=== PATIENT | male | born 1950 | race Caucasian/White ===

== ENCOUNTER 2020-12-27 10:19 | Emergency (ER) | payer MEDICARE ==
[~2020-12-27] VITALS: Ht 180.3 cm; Wt 180.0 kg
--- NOTE | 2020-12-27 10:56 | PHYS DOC ---
General Adult EDM: Chief Complaint: MECHANICAL FALL HPI: HPI: 70-year-old male past medical history of hypertension, hyperlipidemia, iron deficiency anemia, GERD, COPD and chronic pain (lumbar back pain, sciatica, right shoulder supraspinatus tear), presents the ED with c/o "what is this?" and points to left upper abdomen stating, "is this a mass?" Patient reports he fell forward days ago but does not recall any specific blunt abdominal injury. Patient not any anticoagulants. Reports did not hit his head or lose consciousness. Denies any associated weight loss, night sweats or fever. Review of Systems: Review of Systems: Constitutional: Denies fever or chills Eyes: Denies change in visual acuity HENT: Denies nasal congestion or sore throat Respiratory: Denies cough or shortness of breath Cardiovascular: Denies chest pain or edema GI: Denies nausea, vomiting, bloody stools or diarrhea : Denies incontinence or saddle anesthesia Musculoskeletal: Denies back pain or joint pain Integument: Denies rash or diaphoresis Neurologic: Denies headache, focal weakness or sensory changes Endocrine: Denies polyuria or polydipsia Lymphatic: Denies swollen glands Psychiatric: Denies depression or anxiety Physical Exam: PE: Constitutional: Well developed, well nourished, no acute distress, non-toxic appearance. HENT: Normocephalic, atraumatic, Eyes: EOMI, conjunctiva normal, no discharge. Neck: Normal range of motion, supple, Cardiovascular: S1/2 present, regular rhythm Lungs & Thorax: Speaking in full sentences, bilateral equal chest rise, no tachypnea or increased work of breathing Abdomen: soft, no tenderness, left upper quadrant fullness Skin: Warm, dry, no erythema, no rash. [] Back: No midline spinal step offs or tenderness, no CVA tenderness. [] Extremities: No tenderness, no cyanosis, Neurologic: Alert and oriented X 3, normal motor function, normal sensory function, no focal deficits noted, ambulates cautiously with cane Psychologic: Affect normal, judgement normal, mood normal. [] EKG: EKG: [] Radiology/Procedures: Radiology/Procedures: IMAGING REPORT Signed PATIENT: ANNIKA DAVISON ACCOUNT: [id number] : 1950 LOCATION: ER AGE: 70 SEX: M EXAM STATUS: REG ER ORD. PHYSICIAN: ASHISH OCASIO DO REASON: fall PROCEDURE: CT HEAD AND CERVICAL SPINE WO CT CHEST+ABD+PELVIS W, CT HEAD AND C-SPINE WO dated 12/27/2020 11:58 AM Indication:Reason: fall / Spl. Instructions: omni 30 75ml iv only, gfr >60 creat 0.8 / History: Comparison: No comparison is available. Technique: Noncontrast images were performed through the brain and cervical spine. Sagittal and coronal reconstructions were performed. CT images were then obtained through the chest abdomen and pelvis using an infusion of 75 mL O mnipaque 300. One or more of the following individualized dose reduction techniques were utilized for this examination: 1. Automated exposure control 2. Adjustment of the mA and/or kV according to patient size 3. Use of iterative reconstruction technique Findings: CT head: There is no apparent intracranial hemorrhage or abnormal extra-axial fluid collection. No area of abnormal density is seen in the brain. The ventricles and basilar cisterns are normally positioned. Bone windows show no apparent fracture of the skull or abnormal sinus or mastoid opacification. CT cervical spine: There is straightening from the usual lordosis. There is mild anterior offset of C4 on C5, likely degenerative. Alignment is otherwise normal. There is no apparent loss of vertebral body height or prevertebral soft tissue swelling. No fracture line is seen. There is disc narrowing especially at C3-4. Evaluation of the soft tissue components of the canal is limited without intrathecal contrast. No destructive process is seen. CT CHEST: The right hemidiaphragm is elevated and there is some adjacent atelectasis. No other significant pulmonary parenchymal abnormality is seen. There is no pneumothorax or pleural effusion. The central airways show no obstruction. There are secretions within the bronchus intermedius extending to the middle and lower lobe bronchi. This may relate to the adjacent atelectasis. There is no apparent adenopathy. No mediastinal fluid or blood is seen. The thoracic aorta has normal caliber and contour without evidence of injury. Bone windows show no apparent fracture. CT abdomen and pelvis: The liver and spleen are homogeneous in density and normal in configuration. There is no evidence of injury. The gallbladder was distended at the time of the exam and contains some sludge or small stones. The biliary tree appears mildly dilated down to the head of the pancreas without identified cause for obstruction. Both kidneys enhance with contrast. There is no evidence of parenchymal injury. Small callus cases are seen bilaterally, and at least some of these are likely arterial. There is no apparent mass or obstruction. The adrenal glands and pancreas appear normal. No free fluid is seen in the abdomen. Images through the pelvis show no abnormality of the distal ureters. The bladder was not well-distended, but appears normal. No free fluid is seen in the pelvis. Bone windows show no apparent acute fracture. Postoperative changes are seen in the left proximal femur from prior fixation. IMPRESSION: CT head: No acute abnormality. CT cervical spine: Degenerative changes. No acute abnormality. CT CHEST: Elevated right hemidiaphragm with adjacent atelectasis, presumably chronic. No evidence of acute injury. CT abdomen pelvis: No acute abnormality. Electronically signed by: Jules Malloy Jr., MD (12/27/2020 12:20 PM) [id number] DICTATED AND SIGNED BY: JULES MALLOY Jr, MD DATE: 12/27/20 1201 CC: IDA ESPINAL MD; ASHISH OCASIO DO ~MTH0 0 Heart Score: C/O Chest Pain: No Risk Factors: Risk Factors: DM, Current or recent (<one month) smoker, HTN, HLP, family history of CAD, obesity. Risk Scores: Score 0 - 3: 2.5% MACE over next 6 weeks - Discharge Home Score 4 - 6: 20.3% MACE over next 6 weeks - Admit for Clinical Observation Score 7 - 10: 72.7% MACE over next 6 weeks - Early Invasive Strategies Course & Med Decision Making: Course & Med Decision Making Pertinent Labs and Imaging studies reviewed. (See chart for details) Concern for unwitnessed fall with no apparent trauma on CT imaging. Suspect abdominal wall pannus (given the setting of trauma, ddx included: (stool, fat, abdominal wall hematoma, organ injury, hernia, etc). Patient with steady gait in no active distress. No bruising or signs of injury. Will discharge home with strict ED return precautions were given for repeat head injury, loss of consciousness, neurologic deficits or chest pain. Encouraged urgent outpatient follow-up with PMD for routine care. Life-threatening processes were considered but are low suspicion at this time, given history, physical exam and ED workup. Pt was educated on all prescription medications and adverse effects. All patient's questions were answered and pt was stable at time of discharge. Life/limb-threatening differential includes but is not limited to, intracranial hemorrhage, diffuse axonal injury, spinal cord syndrome, unstable cervical fracture or SCIWORA, fractures or joint dislocations, neurovascular injuries, organ injury or laceration, pneumothorax, pneumoperitoneum, pericardial tamponade, unstable pelvic fracture, compartment syndrome, flail chest or respiratory distress, burn injury or asphyxiation I have spoken with the patient and/or caregivers. I explained the patient's condition, diagnoses and treatment plan based on the information available to me at this time. I have answered the patient and/or caregiver's questions and addressed any concerns. The patient and/or caregivers have a good understanding of patient's diagnosis, condition and treatment plan as can be expected at this point. Vital signs have been stable. Patient's condition is stable and appropriate for discharge from the emergency department. Patient will pursue further outpatient evaluation with primary care physician or other designated or consulting physician as outlined in the discharge instructions. The patient and/or caregivers are agreeable to this plan of care and follow-up instructions have been explained in detail. The patient and/or caregivers have received these instructions in written form and have expressed an understanding of the discharge instructions. The patient and/or caregivers are aware that any significant change of condition or worsening of symptoms should prompt immediate return to this or the closest emergency department or ca ll to 266. [place] Disclaimer: Heber Disclaimer: This electronic medical record was generated, in whole or in part, using a voice recognition dictation system. Departure Departure: Impression: Primary Impression: Fall Disposition: 01 HOME / SELF CARE / HOMELESS Condition: STABLE Referrals: IDA ESPINAL MD (PCP) [phone] OR [facility]-Dr. Granger [phone] Patient Instructions: Fall Prevention and Home Safety Additional Instructions: EMERGENCY DEPARTMENT GENERAL DISCHARGE INSTRUCTIONS Thank you for coming to [facility] (ED) today and trusting us with you care. We trust that you had a positivie experience in our Emergency Department. If you wish to speak to the department management, you may call the director at [phone]. YOUR FOLLOW UP INSTRUCTIONS ARE FOLLOWS: 1. Do you have a private Doctor? If you do not have a private doctor, please ask for a resource list of physicians or clinics that may be able to assist you with follow up care. 2. The Emergency Physician has interpreted your x-rays. The X-Ray specialist will also review them. If there is a change in the findings, you will be notified in 48 hours when at all possible. 3. A lab test or culture has been done, your results will be reviewed and you will be notified if you need a change in treatment. ADDITIONAL INSTRUCTIONS AND INFORMATION: 1. Your care today has been supervised by a physician who is specially trained in emergency care. Many problems require more than one evaluation for a complete diagnosis and treatment. We recommend that you schedule your follow up appointment as recommended to ensure complete treatment of you illness or injury. If you are unable to obtain follow up care and continue to have a problem, or if your condition worsens, we recommend that you return to the ED. 2. We are not able to safely determine your condition over the phone nor are we able to give sound medical advice over the phone. For these safety reasons, if you call for medical advice we will ask you to come to the ED for further evaluation. 3. If you have any questions regarding these discharge instructions please call the ED at [phone]. SAFETY INFORMATION: In the interest of safety, wellness, and injury prevention; we encourage you to wear your sealbelt, if you smoke; quite smoking, and we encourage family to use a protective helmet for bicycling and other sporting events that present an increased risk for head injury. IF YOUR SYMPTOMS WORSEN OR NEW SYMPTOMS DEVELOP, OR YOU HAVE CONCERNS ABOUT YOUR CONDITION; OR IF YOUR CONDITION WORSENS WHILE YOU ARE WAITING FOR YOUR FOLLOW UP APPOINTMENT; EITHER CONTACT YOUR PRIMARY CARE DOCTOR, THE PHYSICIAN WHOSE NAME AND NUMBER YOU WERE GIVEN, OR RETURN TO THE ED IMMEDIATELY. ASHISH OCASIO DO Dec 27, 2020 10:56
[2020-12-27 11:22] VITALS: BP 142/67
[2020-12-27] MEDS ORDERED: CONTRAST GIVEN. MC PRN (11:30)
[2020-12-27] MEDS ORDERED: IOHEXOL 300 MG/ML 75 ML VIAL. IV ONE (11:30)
[2020-12-27 11:40] LABS: CALCIUM 9.5 mg/dL (8.5-10.1); CREATININE 0.8 mg/dL (0.7-1.3); POTASSIUM 4.1 mmol/L (3.5-5.1)
[2020-12-27 11:45] LABS: ALBUMIN 3.7 g/dL (3.4-5.0); BASO % 1 % (0-3); DIRECT BILIRUBIN 0.3 mg/dL (0.0-0.2); EOS # 0.1 x10^3/uL (0.0-0.7); EOS % 2 % (0-3); HEMATOCRIT 37.9 % (39.0-53.0); HEMOGLOBIN 12.8 g/dL (13.0-17.5); LYMPH # 0.7 x10^3/uL (1.0-4.8); LYMPH % 10 % (24-48); MEAN CORPUSCULAR HEMOGLOBIN 33 pg (25-35); MEAN CORPUSCULAR HGB CONC 34 g/dL (31-37); MEAN CORPUSCULAR VOLUME 97 fL (79-100); MONO # 0.5 x10^3/uL (0.0-1.1); MONO % 8 % (0-9); NEUT # 5.7 x10^3uL (1.8-7.7); NEUT % 80 % (31-73); PLATELET COUNT 143 x10^3/uL (140-400); RED BLOOD COUNT 3.92 x10^6/uL (4.30-5.70); RED CELL DISTRIBUTION WIDTH 14.1 % (11.5-14.5); TOTAL PROTEIN 7.7 g/dL (6.4-8.2); WHITE BLOOD COUNT 7.2 x10^3/uL (4.0-11.0)
[2020-12-27] MEDS ORDERED: oxyCODONE IR 5 MG TABLET PO PRN (12:15)
--- NOTE | 2020-12-27 12:22 | RAD ---
CT CHEST+ABD+PELVIS W, CT HEAD AND C-SPINE WO dated 12/27/2020 11:58 AM Indication:Reason: fall / Spl. Instructions: omni 30 75ml iv only, gfr >60 creat 0.8 / History: Comparison: No comparison is available. Technique: Noncontrast images were performed through the brain and cervical spine. Sagittal and coron al reconstructions were performed. CT images were then obtained through the chest abdomen and pelvis using an infusion of 75 mL Omnipaque 300. One or more of the following individualized dose reduction techniques were utilized for this examinat ion: 1. Automated exposure control 2. Adjustment of the mA and/or kV according to patient size 3. Use of iterative reconstruction technique Findings: CT head: There is no apparent intracranial hemorrhage or abnormal extra-axial fluid collection. No ar ea of abnormal density is seen in the brain. The ventricles and basilar cisterns are normally positio remington. Bone windows show no apparent fracture of the skull or abnormal sinus or mastoid opacification. CT cervical spine: There is straightening from the usual lordosis. There is mild anterior offset of C 4 on C5, likely degenerative. Alignment is otherwise normal. There is no apparent loss of vertebral b magda height or prevertebral soft tissue swelling. No fracture line is seen. There is disc narrowing es pecially at C3-4. Evaluation of the soft tissue components of the canal is limited without intratheca l contrast. No destructive process is seen. CT CHEST: The right hemidiaphragm is elevated and there is some adjacent atelectasis. No other signif icant pulmonary parenchymal abnormality is seen. There is no pneumothorax or pleural effusion. The ce ntral airways show no obstruction. There are secretions within the bronchus intermedius extending to the middle and lower lobe bronchi. This may relate to the adjacent atelectasis. There is no apparent adenopathy. No mediastinal fluid or blood is seen. The thoracic aorta has normal caliber and contour without evidence of injury. Bone windows show no apparent fracture. CT abdomen and pelvis: The liver and spleen are homogeneous in density and normal in configuration. T here is no evidence of injury. The gallbladder was distended at the time of the exam and contains prema e sludge or small stones. The biliary tree appears mildly dilated down to the head of the pancreas wi thout identified cause for obstruction. Both kidneys enhance with contrast. There is no evidence of p arenchymal injury. Small callus cases are seen bilaterally, and at least some of these are likely art erial. There is no apparent mass or obstruction. The adrenal glands and pancreas appear normal. No fr ee fluid is seen in the abdomen. Images through the pelvis show no abnormality of the distal ureters. The bladder was not well-distend ed, but appears normal. No free fluid is seen in the pelvis. Bone windows show no apparent acute frac ture. Postoperative changes are seen in the left proximal femur from prior fixation. IMPRESSION: CT head: No acute abnormality. CT cervical spine: Degenerative changes. No acute abnormality. CT CHEST: Elevated right hemidiaphragm with adjacent atelectasis, presumably chronic. No evidence of acute injury. CT abdomen pelvis: No acute abnormality. Electronically signed by: Archie Malloy Jr., MD (12/27/2020 12:20 PM) [id number]
== END 2020-12-27 13:30 | disposition home or self-care (01) ==
LOC: ER 10:19
DX: R10.12 Left upper quadrant pain (principal); I10 Essential (primary) hypertension; E78.5 Hyperlipidemia, unspecified; K21.9 Gastro-esophageal reflux disease without esophagitis; J44.9 Chronic obstructive pulmonary disease, unspecified; G89.29 Other chronic pain; Z86.2 Personal history of diseases of the blood and blood-forming organs and certain disorders involving the immune mechanism; W18.39XA Other fall on same level, initial encounter; Y93.89 Activity, other specified; Y92.89 Other specified places as the place of occurrence of the external cause; Y99.8 Other external cause status
CPT/HCPCS: 36415; 70450; 71260; 72125; 74177; 80048; 80076; 85025; 99285; Q9967